=== PATIENT | female | born 1980 | race Caucasian/White ===

== ENCOUNTER 2016-05-22 14:17 | Emergency (ER) | payer OTHER ==
--- NOTE | 2016-05-22 14:20 | EDM.PDOC ---
ED HPI HEADACHE COMPLAINT - General Chief Complaint: Headache Stated Complaint: MIGRAINE/THROWING UP Time Seen by Provider: 05/22/16 14:20 Source of Information: Reports: Patient, RN, RN notes reviewed History Limitations: Reports: No limitations - History of Present Illness INITIAL COMMENTS - FREE TEXT/NARRATIVE: Patient presents with migraine x2 days with photophobia, nauea, vomiting and sore throat. Fever sensation, but did not measure temperature. Out of Relpex. History of migraine. Symptom Onset Date: 05/20/16 Timing/Duration: Reports: constant/continuous Location: Reports: generalized Severity: Reports: severe - Related Data Allergies/ADRs: Allergies Allergy/AdvReac Type Severity Reaction Status Date / Time No Known Allergies Allergy Verified 05/22/16 15:09 Past Medical History Neurological History: Reports: Migraines Social & Family History - Family History Family Medical History: Noncontributory ED ROS GENERAL - Review of Systems Review Of Systems: ROS reveals no pertinent complaints other than HPI. - Physical Exam Exam: See Below Exam Limited By: No limitations General Appearance: alert, WD/WN, no apparent distress Eye Exam: bilateral eye: other (positive photophobia.) Ears: normal external exam Nose: normal inspection Throat/Mouth: Other (pharyngeal eruthema without exudate. ) Head Exam: atraumatic, normocephalic Neck: normal inspection, supple, non-tender, full range of motion Respiratory/Chest: no respiratory distress, lungs clear, normal breath sounds, no accessory muscle use, chest non-tender Cardiovascular: regular rate, rhythm, tachycardia GI/Abdominal: normal bowel sounds, soft, non tender, no organomegaly, no distention, no abnormal bruit, no mass Neuro Exam (Abbreviated): alert, oriented, CN II-XII intact, normal cognition, normal gait, normal reflexes, no motor/sensory deficits Back Exam: normal inspection, full range of motion, NT Extremities: normal inspection, normal range of motion, non-tender, no pedal edema, normal capillary refill Psychiatric: normal affect, normal mood Skin Exam: Warm, Dry, Intact, Normal color, No rash Course - Orders/Labs/Meds Orders: Active Orders 24 hr Category Date Time Status Peripheral IV Care [RC] . DIRECTED Care 05/22/16 14:58 Active Sodium Chloride 0.9% [Saline Flush] Med 05/22/16 14:57 Active 10 ml FLUSH ASDIRECTED PRN cefTRIAXone [Rocephin] 1 gm Med 05/22/16 16:16 Active Sodium Chloride 0.9% [Normal Saline] 50 ml IV ONETIME Peripheral IV Insertion Adult [OM.PC] Stat Oth 05/22/16 14:57 Ordered Medication Orders Ceftriaxone Sodium 1 gm/ (Sodium Chloride) 50 mls @ 100 mls/hr IV ONETIME ONE Stop: 05/22/16 16:45 Last Admin: 05/22/16 16:30 Dose: 100 mls/hr Sodium Chloride (Saline Flush) 10 ml FLUSH ASDIRECTED PRN PRN Reason: Keep Vein Open Last Admin: 05/22/16 15:46 Dose: 10 ml Meds: Medications Generic Name Dose Route Start Last Admin Trade Name Freq PRN Reason Stop Dose Admin Ceftriaxone Sodium 1 gm/ 50 mls @ 100 mls/hr 05/22/16 16:16 05/22/16 16:30 Sodium Chloride IV 05/22/16 16:45 100 mls/hr ONETIME ONE Administration Sodium Chloride 10 ml 05/22/16 14:57 05/22/16 15:46 Saline Flush FLUSH 10 ml ASDIRECTED PRN Administration Keep Vein Open Discontinued Medications Generic Name Dose Route Start Last Admin Trade Name Freq PRN Reason Stop Dose Admin Diphenhydramine HCl 25 mg 05/22/16 15:35 05/22/16 15:45 Benadryl IVPUSH 05/22/16 15:36 25 mg ONETIME ONE Administration Sodium Chloride 1,000 mls @ 999 mls/hr 05/22/16 14:57 05/22/16 15:45 Normal Saline IV 05/22/16 15:57 999 mls/hr .BOLUS ONE Administration Ketorolac Tromethamine 30 mg 05/22/16 15:35 05/22/16 15:44 Toradol IVPUSH 05/22/16 15:36 30 mg ONETIME ONE Administration Metoclopramide HCl 10 mg 05/22/16 15:36 05/22/16 15:46 Reglan IVPUSH 05/22/16 15:37 10 mg ONETIME ONE Administration - Re-Assessments/Exams Free Text/Narrative Re-Assessment/Exam: 05/22/16 16:34 Rapid strep: Positive. Departure - Departure Time of Disposition: 16:34 Disposition: Home, Self-Care 01 Condition: good Clinical Impression: Strep pharyngitis Migraine Qualifiers: Migraine type: unspecified Status migrainosus presence: with status migrainosus Intractability: not intractable Qualified Code(s): G43.901 - Migraine, unspecified, not intractable, with status migrainosus Instructions: Migraine Headache, [id number], Strep Throat, [id number] Forms: ED Department Discharge Additional Instructions: Relpex 20mg. Amoxicillin 500mg. Follow up in clinic if not improved in 2 days. - My Orders Last 24 Hours: My Active Orders 05/22/16 14:57 Sodium Chloride 0.9% [Saline Flush] 10 ml FLUSH ASDIRECTED PRN Peripheral IV Insertion Adult [OM.PC] Stat 05/22/16 14:58 Peripheral IV Care [RC] . DIRECTED 05/22/16 16:16 cefTRIAXone [Rocephin] 1 gm Sodium Chloride 0.9% [Normal Saline] 50 ml IV ONETIME - Assessment/Plan Last 24 Hours: My Active Orders 05/22/16 14:57 Sodium Chloride 0.9% [Saline Flush] 10 ml FLUSH ASDIRECTED PRN Peripheral IV Insertion Adult [OM.PC] Stat 05/22/16 14:58 Peripheral IV Care [RC] . DIRECTED 05/22/16 16:16 cefTRIAXone [Rocephin] 1 gm Sodium Chloride 0.9% [Normal Saline] 50 ml IV ONETIME
[2016-05-22] MEDS ORDERED: Sodium Chloride 0.9% 10 ML Syringe FLUSH PRN (14:57)
[2016-05-22] MEDS ORDERED: Sodium Chloride 0.9% 1,000 ML IV ONE (14:57)
[2016-05-22] MEDS ORDERED: diphenhydrAMINE 50 MG/ML SDV IVPUSH ONE (15:35)
[2016-05-22] MEDS ORDERED: Ketorolac 30 MG/ML SDV IVPUSH ONE (15:35)
[2016-05-22] MEDS ORDERED: Metoclopramide 10 MG/2 ML SDV IVPUSH ONE (15:36)
[2016-05-22] MEDS ORDERED: cefTRIAXone 1 GM in Sodium Chloride 0.9% 50 ML IV ONE (16:16)
[2016-05-22 16:42] VITALS: BP 144/67
== END 2016-05-22 17:50 | disposition home or self-care (01) ==
LOC: DL.ED 14:17
DX: G43.901 Migraine, unspecified, not intractable, with status migrainosus (principal); J02.0 Streptococcal pharyngitis
CPT/HCPCS: 87430; 96361; 96365; 96375; 99284; J0696; J1200; J1885; J2765; J7030; J7050

== ENCOUNTER 2017-03-15 06:53 | Day surgery (SDC) | payer OTHER ==
[~2017-03-15 06:53] MED LIST: Midazolam 1 MG/ML 2 ML SDV ONE; fentaNYL 100 MCG/2 ML SDV ONE
[2017-03-15] MEDS ORDERED: Midazolam 1 MG/ML 2 ML SDV IV ONE ×3 (06:54→08:08)
[2017-03-15] MEDS ORDERED: fentaNYL 100 MCG/2 ML SDV IV ONE ×3 (06:54→08:07)
[2017-03-15] MEDS ORDERED: Dextrose 5%-0.45% NaCl 1,000 ML IV SCH (07:30)
--- NOTE | 2017-03-15 12:02 | OR ---
DATE: 03/15/2017 PROCEDURE: Esophagogastroduodenoscopy and multiple pinch biopsies. INSTRUMENT USED: GIF-H180 Olympus video panendoscope. PREMEDICATIONS: No oral topical anesthesia used. Fentanyl 100 mcg intravenous, Versed 2 mg intravenous. The procedure was done under pulse oximetry, BP recording, and front desk monitor. INDICATION: The patient with persistent longstanding heartburn along with intermittent upper abdominal pain, unexplained and not responsive to medical measures, on H2RA at this time. Esophagogastroduodenoscopy was performed for detection of any active erosive lesions, [place] esophagus and/or malignancy also under consideration, H. pylori status to be determined, endoscopic hemostasis therapy if needed. DESCRIPTION OF PROCEDURE: The scope passed with ease. Adequate visualization of the esophagus was made from proximal to distal areas. No upper esophageal lesions identified. No distal esophageal stricture. No uphill or downhill esophageal varices. No Shae-Zhang tear. Grade A erosive changes were noted by [place] criteria. No esophageal polyp or tumor mass identified. Sliding hiatal hernia was noted. Multiple pinch biopsies were taken from the area of the pink columnar epithelium, 35 cm distal to the oral verge, and sent for any histopathologic evidence of intestinal metaplasia. No proximal gastric varices noted. Gastric fundus examination by retroflexion showed no polypoid lesions. No gastric ulcer, malignant mass, or vascular ectasia identified. Duodenal bulb showed no ulcer. Visualized second part of the duodenum was unremarkable. Multiple pinch biopsies were taken from the gastric antrum and proximal body and sent for PyloriTek test for H. pylori and histopathology. No bleeding was noted from any of the visualized areas at the completion of examination. Photographs were taken of the duodenal bulb, gastric antrum, fundus, and distal esophagus. IMPRESSION: 1. Grade A gastroesophageal reflux disease. 2. Sliding hiatal hernia. The patient tolerated the procedure well. [facility] /[id number]
[2017-03-15 15:11] VITALS: BP 125/77
== END 2017-03-15 10:20 | disposition home or self-care (01) ==
LOC: DL.ENDO 06:53
PROVIDERS: ATTEND Internal Medicine Gastroenterology
DX: K20.9 Esophagitis, unspecified (principal); K44.9 Diaphragmatic hernia without obstruction or gangrene; E66.9 Obesity, unspecified; F41.1 Generalized anxiety disorder; Z88.8 Allergy status to other drugs, medicaments and biological substances; Z91.040 Latex allergy status; Z87.19 Personal history of other diseases of the digestive system
CPT/HCPCS: 43239; 87077; J2250; J3010; J7042

== ENCOUNTER 2018-07-23 07:37 | Emergency (ER) | payer OTHER ==
[2018-07-23 07:43] VITALS: BP 148/89
[2018-07-23] MEDS ORDERED: Sodium Chloride 0.9% 10 ML Syringe FLUSH PRN (07:45)
--- NOTE | 2018-07-23 07:46 | EDM.PDOC ---
ED HPI GENERAL MEDICAL PROBLEM - General Chief Complaint: Abdominal Pain Stated Complaint: SEVERE ABD PAIN Time Seen by Provider: 07/23/18 07:45 Source of Information: Reports: Patient, Old Records, RN, RN Notes Reviewed History Limitations: Reports: No Limitations - History of Present Illness INITIAL COMMENTS - FREE TEXT/NARRATIVE: Pt presents to ER from home by POV with c/o severe sharp epigastric pain that woke her at 0100HRS this morning. Pt states that her abdomen feels "full and heavy". She took Tums and Omeprazole without relief. Pt states her last BM was this AM, and BMs have been soft and regular. She states that her gallbladder was removed in 2017, and she has had a tubal ligation. Pt denies fever, chills, vomiting, diarrhea, constipation, or urinary symptoms. Duration: Constant, Getting Worse Location: Reports: Abdomen Quality: Reports: Sharp Severity: Severe Improves with: Reports: None Worsens with: Reports: None Associated Symptoms: Reports: No Other Symptoms Epigastric Pain Score (Numeric/FACES): 7 - Related Data Allergies Allergy/AdvReac Type Severity Reaction Status Date / Time citalopram [From Celexa] Allergy Rash Verified 07/23/18 07:43 latex Allergy Rash Verified 07/23/18 07:43 Home Meds: Home Meds DULoxetine HCl [Duloxetine HCl] 60 mg PO DAILY 07/23/18 [History] Omeprazole 20 mg PO ACBREAKFAST 07/23/18 [History] Past Medical History HEENT History: Reports: Impaired Vision, Other (See Below) Other HEENT History: WEARS CORRECTIVE LENS Cardiovascular History: Reports: None Respiratory History: Reports: None Gastrointestinal History: Reports: GERD Genitourinary History: LACE MENDER History: Reports: , Spontaneous Musculoskeletal History: Reports: Back Pain, Chronic Other Musculoskeletal History: HX OF CLAVICLE FRACTURE Neurological History: Reports: Migraines Psychiatric History: Reports: Anxiety Endocrine/Metabolic History: Reports: Obesity/BMI 30+ Hematologic History: Reports: None Immunologic History: Reports: None Oncologic (Cancer) History: Reports: None Dermatologic History: Reports: None - Infectious Disease History Infectious Disease History: Reports: Chicken Pox - Past Surgical History Female Surgical History: Reports: Section, D&C, Tubal Ligation, Other (See Below) Other Female Surgeries/Procedures: URETHRAL DILATION Social & Family History - Family History Family Medical History: Noncontributory - Caffeine Use Caffeine Use: Reports: Coffee Other Caffeine Use: 'RARELY' 1 CUP COFFEE DAILY - Living Situation & Occupation Living situation: Reports: with Family ED ROS GENERAL - Review of Systems Review Of Systems: ROS reveals no pertinent complaints other than HPI. ED EXAM, GI/ABD - Physical Exam Exam: See Below Exam Limited By: No Limitations General Appearance: Alert, WD/WN, No Apparent Distress, Mild Distress (due to pain), Obese Eyes: Bilateral: Normal Appearance Nose: Normal Inspection Throat/Mouth: Normal Inspection, Normal Lips, Normal Teeth, Normal Gums, Normal Oropharynx, Normal Voice, No Airway Compromise Head: Atraumatic, Normocephalic Neck: Normal Inspection, Supple, Non-Tender, Full Range of Motion Respiratory/Chest: No Respiratory Distress, Lungs Clear, Normal Breath Sounds, No Accessory Muscle Use, Chest Non-Tender Cardiovascular: Regular Rate, Rhythm GI/Abdominal Exam: Normal Bowel Sounds, Soft, No Organomegaly, No Distention, No Abnormal Bruit, No Mass, Tender (mildly tender to palpation at epigastric region). No: Guarding, Rigid, Rebound (Female) Exam: Deferred Rectal (Female) Exam: Deferred Back Exam: Normal Inspection Extremities: Normal Inspection Neurological: Alert, Oriented, No Motor/Sensory Deficits Psychiatric: Normal Mood Skin Exam: Warm, Dry, Intact, Normal Color, No Rash Course - Vital Signs Last Recorded V/S: Last Vital Signs Temp 36.3 C 07/23/18 07:40 Pulse 77 07/23/18 07:40 Resp 20 07/23/18 07:40 BP 148/89 H 07/23/18 07:40 Pulse Ox 99 07/23/18 07:40 - Orders/Labs/Meds Orders: Active Orders 24 hr Category Date Time Status Peripheral IV Care [RC] . DIRECTED Care 07/23/18 07:46 Active Sodium Chloride 0.9% [Saline Flush] Med 07/23/18 07:45 Active 10 ml FLUSH ASDIRECTED PRN Peripheral IV Insertion Adult [OM.PC] Routine Oth 07/23/18 07:45 Ordered Medication Orders Sodium Chloride (Saline Flush) 10 ml FLUSH ASDIRECTED PRN PRN Reason: Keep Vein Open Last Admin: 07/23/18 08:13 Dose: 10 ml Labs: Laboratory Tests 07/23/18 07/23/18 07/23/18 Range/Units 07:45 07:45 07:45 WBC 10.3 H (5.0-10.0) 10^3/uL RBC 4.96 (4.2-5.4) 10^6/uL Hgb 14.3 (12.0-16.0) g/dL Hct 42.1 (37.0-47.0) % MCV 84.9 (80-100) fL MCH 28.8 (27.0-34.0) pg MCHC 34.0 (33.0-35.0) g/dL Plt Count 272 (150-450) 10^3/uL Neut % (Auto) 70.7 (42.2-75.2) % Lymph % (Auto) 20.2 L (20.5-50.1) % Evangeline % (Auto) 9.0 H (2-8) % Eos % (Auto) 0.0 L (1.0-3.0) % Baso % (Auto) 0.1 (0.0-1.0) % Sodium 132 L (135-145) mmol/L Potassium 3.5 L (3.6-5.0) mmol/L Chloride 107 (101-111) mmol/L Carbon Dioxide 18.0 L (21.0-31.0) mmol/L Anion Gap 10.5 BUN 12 (7-18) mg/dL Creatinine 0.6 (0.6-1.3) mg/dL Est Cr Clr Drug Dosing 115.52 mL/min Estimated GFR (MDRD) > 60 BUN/Creatinine Ratio 20.00 Glucose 107 H (74-105) mg/dL Calcium 8.6 (8.4-10.2) mg/dl Total Bilirubin 0.5 (0.2-1.0) mg/dL AST 23 (10-42) IU/L ALT 21 (10-60) IU/L Alkaline Phosphatase 66 (42-121) IU/L Total Protein 8.1 (6.7-8.2) g/dl Albumin 4.3 (3.2-5.5) g/dl Globulin 3.8 Albumin/Globulin Ratio 1.13 Amylase 44 (28-100) U/L Lipase 33 (22-51) U/L Meds: Medications Generic Name Dose Route Start Last Admin Trade Name Jolly PRN Reason Stop Dose Admin Sodium Chloride 10 ml 07/23/18 07:45 07/23/18 08:13 Saline Flush FLUSH 10 ml ASDIRECTED PRN Administration Keep Vein Open Discontinued Medications Generic Name Dose Route Start Last Admin Trade Name Jolly PRN Reason Stop Dose Admin Al Hydroxide/Mg Hydroxide 30 ml 07/23/18 07:51 07/23/18 08:04 Gi Cocktail PO 07/23/18 07:52 30 ml ONETIME ONE Administration Famotidine 20 mg 07/23/18 07:51 07/23/18 08:01 Pepcid IVPUSH 07/23/18 07:52 20 mg ONETIME ONE Administration Hydromorphone HCl 1 mg 07/23/18 08:12 07/23/18 08:16 Dilaudid IVPUSH 07/23/18 08:13 1 mg ONETIME ONE Administration Sodium Chloride 1,000 mls @ 999 mls/hr 07/23/18 07:52 07/23/18 07:59 Normal Saline IV 07/23/18 08:52 999 mls/hr .BOLUS ONE Administration Iopamidol 100 ml 07/23/18 08:43 07/23/18 09:27 Isovue-300 (61%) IVPUSH 07/23/18 08:44 100 ml ONETIME ONE Administration Ondansetron HCl 4 mg 07/23/18 07:52 07/23/18 07:59 Zofran IV 07/23/18 07:53 4 mg ONETIME ONE Administration - Radiology Interpretation Free Text/Narrative:: CT Abd/Pelvis: no acute findings, see Rad. report. - Re-Assessments/Exams Free Text/Narrative Re-Assessment/Exam: 07/23/18 10:25 No signs of serious intra-abdominal process, infection, or surgical abdomen. Known hiatal hernia with Hx of epigastric pain previous. Plan to have pt f/u in clinic for recheck and further evaluation. Cont. omeprazole and add short term Ranitidine. Departure - Departure Time of Disposition: 10:21 Disposition: Home, Self-Care 01 Condition: Fair Clinical Impression: Epigastric abdominal pain, Sliding hiatal hernia - Discharge Information *PRESCRIPTION DRUG MONITORING PROGRAM REVIEWED*: Not Applicable *COPY OF PRESCRIPTION DRUG MONITORING REPORT IN PATIENT RACHAEL: Not Applicable Instructions: Abdominal Pain, Adult, Hiatal Hernia Forms: ED Department Discharge Additional Instructions: Rx: Ranitidine 150mg Rx: Zofran 4mg Continue Omeprazole as prescribed. Clear liquid diet for 24 hours, or until pain resolves. No soda, no citric or acidic juice. Follow up in clinic this week for recheck. - My Orders Last 24 Hours: My Active Orders 07/23/18 07:45 Sodium Chloride 0.9% [Saline Flush] 10 ml FLUSH ASDIRECTED PRN Peripheral IV Insertion Adult [OM.PC] Routine 07/23/18 07:46 Peripheral IV Care [RC] . DIRECTED - Assessment/Plan Last 24 Hours: My Active Orders 07/23/18 07:45 Sodium Chloride 0.9% [Saline Flush] 10 ml FLUSH ASDIRECTED PRN Peripheral IV Insertion Adult [OM.PC] Routine 07/23/18 07:46 Peripheral IV Care [RC] . DIRECTED
[2018-07-23] MEDS ORDERED: GI Cocktail Oral Solution 30 ML PO ONE (07:51)
[2018-07-23] MEDS ORDERED: Famotidine 20 MG/2 ML SDV IVPUSH ONE (07:51)
[2018-07-23] MEDS ORDERED: Ondansetron 4 MG/2 ML SDV IV ONE (07:52)
[2018-07-23] MEDS ORDERED: Sodium Chloride 0.9% 1,000 ML IV ONE (07:52)
[2018-07-23] MEDS ORDERED: HYDROmorphone 1 MG/ML Syringe IVPUSH ONE (08:12)
[2018-07-23 08:14] LABS: ANION GAP 10.5; CHLORIDE,CL 107 mmol/L (101-111); SODIUM,NA 132 mmol/L (135-145)
[2018-07-23] MEDS ORDERED: Iopamidol 612 MG/ML 100 ML Bottle IVPUSH ONE (08:43)
--- NOTE | 2018-07-23 10:16 | CT ---
Clinical history: 37-year-old 185 pound female complaining of severe upper abdominal pain. WBC 10,300 (cholecystectomy) Normal serum amylase/lipase. Scan technique: Volume acquisition of data from the abdomen and pelvis obtained on emergency basis without oral contrast but during/after intravenous infusion 100 cc nonionic Isovue contrast while patient was lying supine on the Siemens multi slice scanner [place], [place]. All data archived in the PACS system for storage, reformatting axial/sagittal/coronal planes and study. Interpretation: 1. Several 15 mm diameter cyst lower pole cortex left kidney with overlying cortical scar. No other renal cortical mass lesion, stones or signs of obstructive uropathy. Urinary bladder unremarkable. Normal vascular uterus and small ovarian cysts. 2. Surgical clips gallbladder fossa RUQ. Normal liver without sign of intrahepatic mass or abnormal dilatation of intra/extrahepatic biliary ducts. Normal stomach, spleen, pancreas and adrenal glands. 3. Lung bases are clear. Normal caliber aorta. Normal cardiac silhouette. 4. No inflammatory "dirty" peritoneal fat, abdominal/pelvic mass lesion, mesenteric/retroperitoneal lymphadenopathy, signs of mechanical bowel obstruction, ascites or free intraperitoneal air. No ventral wall or inguinal hernias. Normal appendix RLQ. 5. Normal lumbar spine. CONCLUSION: Cholecystectomy. Solitary left renal cyst. No sign of acute intraperitoneal abnormality.
== END 2018-07-23 10:30 | disposition home or self-care (01) ==
LOC: DL.ED 07:37
DX: K44.9 Diaphragmatic hernia without obstruction or gangrene (principal); K21.9 Gastro-esophageal reflux disease without esophagitis; E66.9 Obesity, unspecified; Z79.899 Other long term (current) drug therapy; Z98.51 Tubal ligation status; Z91.040 Latex allergy status; Z88.8 Allergy status to other drugs, medicaments and biological substances
CPT/HCPCS: 36415; 74177; 80053; 82150; 83690; 85025; 96361; 96374; 96375; 99284-25; A9270-GY; J1170; J2405; J3490; J7030; Q9967

== ENCOUNTER 2018-07-24 12:36 | Emergency (ER) | payer OTHER ==
[2018-07-24 12:41] VITALS: BP 128/94
[2018-07-24] MEDS ORDERED: Sodium Chloride 0.9% 1,000 ML IV ONE (12:48)
[2018-07-24] MEDS ORDERED: Ondansetron 4 MG/2 ML SDV IV ONE (12:48)
[2018-07-24] MEDS ORDERED: Morphine 4 MG/ML Syringe IVPUSH ONE (12:48)
[2018-07-24] MEDS ORDERED: Sodium Chloride 0.9% 10 ML Syringe FLUSH PRN (12:48)
[2018-07-24] MEDS ORDERED: diphenhydrAMINE 50 MG/ML SDV IVPUSH ONE (12:48)
--- NOTE | 2018-07-24 12:48 | EDM.PDOC ---
ED HPI GENERAL MEDICAL PROBLEM - General Chief Complaint: Abdominal Pain Stated Complaint: ambulance Time Seen by Provider: 07/24/18 12:47 Source of Information: Reports: Patient, EMS, Old Records, RN, RN Notes Reviewed History Limitations: Reports: No Limitations - History of Present Illness INITIAL COMMENTS - FREE TEXT/NARRATIVE: Pt arrives to ER by ambulance with c/o persistent severe abdominal pain. She was seen here yesterday and despite the severe pain, no definitive cause of her pain was found. She went to [facility] ER in last night for the same complaint, and again no source of her pain could be found. She went to see Dr. Zamora in clinic today and states that he order more blood tests, but they were normal. She states that Dr. Zamora also ordered an MRCP and Swallow Study but they cannot be scheduled until next week. The pt states the pain increased and she ended up "doubled over" and could not tolerate the pain, so she called 911. She denies vomiting, fever, chills, bloody stools or melana. Onset: Gradual Duration: Constant Location: Reports: Abdomen Quality: Reports: Ache, Burning, Pressure, Sharp Severity: Severe Improves with: Reports: None Worsens with: Reports: None Associated Symptoms: Reports: No Other Symptoms Epigastric Pain Score (Numeric/FACES): 8 Headache Pain Score (Numeric/FACES): 8 - Related Data Allergies Allergy/AdvReac Type Severity Reaction Status Date / Time citalopram [From Celexa] Allergy Rash Verified 07/24/18 12:41 latex Allergy Rash Verified 07/24/18 12:41 Home Meds: Home Meds DULoxetine HCl [Duloxetine HCl] 60 mg PO DAILY 07/23/18 [History] Omeprazole 20 mg PO ACBREAKFAST 07/23/18 [History] Past Medical History HEENT History: Reports: Impaired Vision, Other (See Below) Other HEENT History: WEARS CORRECTIVE LENS Cardiovascular History: Reports: None Respiratory History: Reports: None Gastrointestinal History: Reports: GERD, Hiatal Hernia Genitourinary History: 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 AND WINDER History: Reports: , Spontaneous Musculoskeletal History: Reports: Back Pain, Chronic Other Musculoskeletal History: HX OF CLAVICLE FRACTURE Neurological History: Reports: Migraines Psychiatric History: Reports: Anxiety Endocrine/Metabolic History: Reports: Obesity/BMI 30+ Hematologic History: Reports: None Immunologic History: Reports: None Oncologic (Cancer) History: Reports: None Dermatologic History: Reports: None - Infectious Disease History Infectious Disease History: Reports: Chicken Pox - Past Surgical History Head Surgeries/Procedures: Reports: None Female Surgical History: Reports: Section, D&C, Tubal Ligation, Other (See Below) Other Female Surgeries/Procedures: URETHRAL DILATION Social & Family History - Family History Family Medical History: Noncontributory - Tobacco Use Smoking Status *Q: Never Smoker Second Hand Smoke Exposure: No - Caffeine Use Caffeine Use: Reports: Coffee Other Caffeine Use: 'RARELY' 1 CUP COFFEE DAILY - Recreational Drug Use Recreational Drug Use: No - Living Situation & Occupation Living situation: Reports: with Family ED ROS GENERAL - Review of Systems Review Of Systems: ROS reveals no pertinent complaints other than HPI. ED EXAM, GI/ABD - Physical Exam Exam: See Below Exam Limited By: No Limitations General Appearance: Alert, Severe Distress (due to abdominal pain), Obese Eyes: Bilateral: Normal Appearance (No scleral icterus) Nose: Normal Inspection Throat/Mouth: Normal Inspection, Normal Lips, Normal Teeth, Normal Gums, Normal Oropharynx, Normal Voice, No Airway Compromise Head: Atraumatic, Normocephalic Neck: Normal Inspection Respiratory/Chest: No Respiratory Distress, Lungs Clear, Normal Breath Sounds, No Accessory Muscle Use, Chest Non-Tender Cardiovascular: Regular Rate, Rhythm, No Edema GI/Abdominal Exam: Normal Bowel Sounds, Soft, No Distention, No Abnormal Bruit, Tender (mild epigastric tenderness, no peritoneal signs). No: Guarding, Rigid, Rebound (Female) Exam: Deferred Rectal (Female) Exam: Deferred Back Exam: Normal Inspection Extremities: Normal Inspection Neurological: Alert, Oriented, No Motor/Sensory Deficits Psychiatric: Normal Mood Skin Exam: Warm, Dry, Intact Course - Vital Signs Last Recorded V/S: Last Vital Signs Temp 36.6 C 07/24/18 12:36 Pulse 74 07/24/18 12:36 Resp 20 07/24/18 12:36 BP 128/94 H 07/24/18 12:36 Pulse Ox 98 07/24/18 12:36 - Orders/Labs/Meds Orders: Active Orders 24 hr Category Date Time Status Peripheral IV Care [RC] . DIRECTED Care 07/24/18 12:48 Active Sodium Chloride 0.9% [Normal Saline] 1,000 ml Med 07/24/18 12:48 Active IV .BOLUS Sodium Chloride 0.9% [Saline Flush] Med 07/24/18 12:48 Active 10 ml FLUSH ASDIRECTED PRN Peripheral IV Insertion Adult [OM.PC] Stat Oth 07/24/18 12:48 Ordered Medication Orders Sodium Chloride (Normal Saline) 1,000 mls @ 999 mls/hr IV .BOLUS ONE Stop: 07/24/18 13:48 Sodium Chloride (Saline Flush) 10 ml FLUSH ASDIRECTED PRN PRN Reason: Keep Vein Open Meds: Medications Generic Name Dose Route Start Last Admin Trade Name Freq PRN Reason Stop Dose Admin Sodium Chloride 1,000 mls @ 999 mls/hr 07/24/18 12:48 Normal Saline IV 07/24/18 13:48 .BOLUS ONE Sodium Chloride 10 ml 07/24/18 12:48 Saline Flush FLUSH ASDIRECTED PRN Keep Vein Open Discontinued Medications Generic Name Dose Route Start Last Admin Trade Name Freq PRN Reason Stop Dose Admin Diphenhydramine HCl 25 mg 07/24/18 12:48 Benadryl IVPUSH 07/24/18 12:49 ONETIME ONE Morphine Sulfate 4 mg 07/24/18 12:48 Morphine IVPUSH 07/24/18 12:49 ONETIME ONE Ondansetron HCl 4 mg 07/24/18 12:48 Zofran IV 07/24/18 12:49 ONETIME ONE Pantoprazole Sodium 40 mg 07/24/18 12:49 Protonix Iv IVPUSH 07/24/18 12:50 ONETIME ONE - Re-Assessments/Exams Free Text/Narrative Re-Assessment/Exam: 07/24/18 13:07 Given the 2 previous ER work ups and one clinic visit without any significant abnormalities and no definitive source of her pain, I see no need to embark on a third diagnostic evaluation at this point. I believe the pt will be best severed by providing pain control, IV Protonix, and transferring her as a direct admit to [facility] in to a higher level of care. The pt agrees with the plan to transfer. Dr. Raygoza has accepted the pt as a direct admit. Departure - Departure Time of Disposition: 13:11 Disposition: DC/Tfer to Acute Hospital 02 Condition: Undetermined Clinical Impression: Epigastric abdominal pain, History of hiatal hernia, History of gastroesophageal reflux (GERD) - Discharge Information *PRESCRIPTION DRUG MONITORING PROGRAM REVIEWED*: Not Applicable *COPY OF PRESCRIPTION DRUG MONITORING REPORT IN PATIENT RACHAEL: Not Applicable Forms: ED Department Discharge - My Orders Last 24 Hours: My Active Orders 07/24/18 12:48 Peripheral IV Care [RC] . DIRECTED Sodium Chloride 0.9% [Normal Saline] 1,000 ml IV .BOLUS Sodium Chloride 0.9% [Saline Flush] 10 ml FLUSH ASDIRECTED PRN Peripheral IV Insertion Adult [OM.PC] Stat - Assessment/Plan Last 24 Hours: My Active Orders 07/24/18 12:48 Peripheral IV Care [RC] . DIRECTED Sodium Chloride 0.9% [Normal Saline] 1,000 ml IV .BOLUS Sodium Chloride 0.9% [Saline Flush] 10 ml FLUSH ASDIRECTED PRN Peripheral IV Insertion Adult [OM.PC] Stat
[2018-07-24] MEDS ORDERED: Pantoprazole 40 MG Vial IVPUSH ONE (12:49)
== END 2018-07-24 13:30 ==
LOC: DL.ED 12:36
DX: R10.13 Epigastric pain (principal); Z87.19 Personal history of other diseases of the digestive system; F41.9 Anxiety disorder, unspecified; Z79.899 Other long term (current) drug therapy; Z91.040 Latex allergy status; Z88.8 Allergy status to other drugs, medicaments and biological substances
CPT/HCPCS: 96374; 96375; 99285; C9113; J1200; J2270; J2405; J7030

== ENCOUNTER → 2018-08-01 | Outpatient (CLI) | payer OTHER ==
[~2018-08-01] MED LIST changes: +Barium Sulfate 60% w/v Susp 355 ML Bottle PO ONE; -Midazolam 1 MG/ML 2 ML SDV ONE; -fentaNYL 100 MCG/2 ML SDV ONE
--- NOTE | 2018-08-01 15:16 | CR ---
CLINICAL HISTORY: 37-year-old female complaining of dysphagia (bread and chicken "sticks" lower chest). INTERPRETATION: Abnormal. 1. Normal barium tablet swallow initiated; tablet dropped immediately to the distal esophagus where there was some "hang-up" (passes immediately with second large bolus of barium). Prominent cricopharyngeus. 2. Large, sliding, hiatus hernia with gross free gastroesophageal reflux barium that was produced/demonstrated with Valsalva maneuver while patient was rolling supine, to the left. 3. *Short, broad stricture distally; suggestion tiny marginal ulceration at the gastroesophageal juncture. Recommend endoscopy. 4. No mucosal ulcerations proximally and no sign of esophageal diverticulum, web, other mucosal ulceration, proximal stricture, intrinsic/extrinsic mass or spasm. No barium aspiration. 5. Stomach unremarkable. (Surgical clip gallbladder fossa adjacent to the duodenum).
== END ==
LOC: DL.DI 10:11
PROVIDERS: ATTEND Internal Medicine Gastroenterology
DX: R13.10 Dysphagia, unspecified (principal)
CPT/HCPCS: 74220

== ENCOUNTER 2019-08-27 10:05 | Emergency (ER) | payer OTHER ==
[2019-08-27 10:12] VITALS: BP 136/88; PULSE 83
--- NOTE | 2019-08-27 10:19 | EDM.PDOC ---
ED HPI GENERAL MEDICAL PROBLEM - General Chief Complaint: Lower Extremity Injury/Pain Stated Complaint: INCOMING AMBULANCE Time Seen by Provider: 08/27/19 10:18 Source of Information: Reports: Patient, EMS, Old Records, RN, RN Notes Reviewed History Limitations: Reports: No Limitations - History of Present Illness INITIAL COMMENTS - FREE TEXT/NARRATIVE: Pt arrives from home by [facility] with c/o severe right knee pain and right ankle pain sustained from falling down 15 steps and landing at the bottom of the stairs in her basement. She denies head injury, neck or back pain, or any other injury. Pt denies chest pain, cough, shortness of breath, eye irritation/drainage, loss of taste or smell, red tongue, rash or skin lesions, abdominal pain, N/V/D, fevers, chills, recent travel, or known exposure to confirmed or suspected Covid -19 cases. 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: Reports: IV/IO, Other Medication(s) (Fentanyl 100mcg and Zofran 4mg IVP from ambulance prior to arrival to ER.) Right Knee Pain Score (Numeric/FACES): 6 - Related Data Allergies Allergy/AdvReac Type Severity Reaction Status Date / Time citalopram [From Celexa] Allergy Rash Verified 08/27/19 10:12 latex Allergy Rash Verified 08/27/19 10:12 Home Meds: Home Meds DULoxetine HCl [Duloxetine HCl] 60 mg PO DAILY 07/23/18 [History] Omeprazole 20 mg PO ACBREAKFAST 07/23/18 [History] Past Medical History HEENT History: Reports: Impaired Vision, Other (See Below) Other HEENT History: WEARS CORRECTIVE LENS Cardiovascular History: Reports: None Respiratory History: Reports: None Gastrointestinal History: Reports: GERD, Hiatal Hernia Genitourinary History: COMPLEX CASE MANAGER History: Reports: , Spontaneous Musculoskeletal History: Reports: Back Pain, Chronic Other Musculoskeletal History: HX OF CLAVICLE FRACTURE Neurological History: Reports: Migraines Psychiatric History: Reports: Anxiety Endocrine/Metabolic History: Reports: Obesity/BMI 30+ Hematologic History: Reports: None Immunologic History: Reports: None Oncologic (Cancer) History: Reports: None Dermatologic History: Reports: None - Infectious Disease History Infectious Disease History: Reports: Chicken Pox - Past Surgical History Head Surgeries/Procedures: Reports: None Female Surgical History: Reports: Section, D&C, Tubal Ligation, Other (See Below) Other Female Surgeries/Procedures: URETHRAL DILATION Social & Family History - Family History Family Medical History: Noncontributory - Tobacco Use Smoking Status *Q: Never Smoker Second Hand Smoke Exposure: No - Caffeine Use Caffeine Use: Reports: Coffee Other Caffeine Use: 'RARELY' 1 CUP COFFEE DAILY - Recreational Drug Use Recreational Drug Use: No - Living Situation & Occupation Living situation: Reports: with Family Review of Systems - Review of Systems Review Of Systems: Comprehensive ROS is negative, except as noted in HPI. ED EXAM, GENERAL - Physical Exam Exam: See Below Exam Limited By: No Limitations General Appearance: Alert, WD/WN, No Apparent Distress Eye Exam: Bilateral Eye: Normal Inspection Ears: Normal External Exam Nose: Normal Inspection, Normal Mucosa, No Blood Throat/Mouth: Normal Lips, Normal Voice, No Airway Compromise Head: Atraumatic, Normocephalic Neck: Normal Inspection, Non-Tender, Full Range of Motion Respiratory/Chest: No Respiratory Distress, Lungs Clear, Normal Breath Sounds, No Accessory Muscle Use, Chest Non-Tender Cardiovascular: Regular Rate, Rhythm Peripheral Pulses: 3+: Posterior Tibial (L), Posterior Tibial (R), Dorsalis Pedis (L), Dorsalis Pedis (R) GI/Abdominal: Normal Bowel Sounds, Soft, Non-Tender, Pelvis Stable Back Exam: Normal Inspection, Full Range of Motion Extremities: Normal Capillary Refill, Joint Swelling (Rt knee), Leg Pain (Rt knee with patella displaced superiorly, acutely tender.), Limited Range of Motion (Rt knee). No: Arm Pain, Increased Warmth, Mottled, Pallor, Redness Neurological: Alert, Oriented, CN II-XII Intact, Normal Cognition, No Motor/ Sensory Deficits Psychiatric: Normal Affect, Normal Mood Skin Exam: Warm, Dry, Intact, Normal Color, No Rash Course - Vital Signs Last Recorded V/S: Last Vital Signs Temp 98.1 F 08/27/19 10:06 Pulse 83 08/27/19 10:06 Resp 18 08/27/19 10:06 BP 136/88 08/27/19 10:06 Pulse Ox 97 08/27/19 10:06 - Orders/Labs/Meds Orders: Active Orders 24 hr Category Date Time Status Ankle 2V Rt [CR] Stat Exams 08/27/19 10:14 Taken Knee 3V Rt [CR] Stat Exams 08/27/19 10:13 Taken Meds: Medications Discontinued Medications Generic Name Dose Route Start Last Admin Trade Name Freq PRN Reason Stop Dose Admin Fentanyl 50 mcg 08/27/19 10:24 08/27/19 10:30 Sublimaze IVPUSH 08/27/19 10:25 50 mcg ONETIME ONE Administration - Radiology Interpretation Free Text/Narrative:: [facility] Final Radiology Report Call: [phone] assistance Online chat: [email or web address] Name: BETHANY BLAIR Age: 38Years F Date: 08/27/2019 SSN: -- : 1980 Study: CR KNEE 3V RT Requesting Physician: EDISON MARKS Images: 3 Addl Studies: Provided Clinical History: Fell down stairs, right knee pain Contrast: Contrast Medium: Contrast Amount: Contrast Method: CONFIDENTIALITY STATEMENT This report is intended only for use by the referring physician, and only in accordance with law. If you received this in error, call [phone]. Page 1 of 1 PROCEDURE INFORMATION: Exam: XR Right Knee Exam date and time: 08/27/2019 10:38 AM Age: 38 years old Clinical indication: Injury or trauma; Fall; Initial encounter; Patella or knee ; Right; Severity of dislocation not specified; Injury date: Today; Additional info: Fell down stairs , right knee pain TECHNIQUE: Imaging protocol: XR Right knee. Views: 3 views. COMPARISON: No relevant prior exams. FINDINGS: Bones/joints: There is marked patella tegan. This probably represents disruption of the patellar tendon. No fractures or dislocations. Soft tissues: See "Bones/joints" finding. Otherwise, unremarkable. IMPRESSION: Probable disruption of the patellar tendon. CT or MRI would be helpful for confirmation. Thank you for allowing us to participate in the care of your patient. Dictated and Authenticated by: Jose Paredes MD 08/27/2019 11:09 AM Central Time ([place] & [place]) [facility] [place] [facility] Final Radiology Report Call: [phone] assistance Online chat: [email or web address] Name: BETHANY BLAIR Age: 38Years F Date: 08/27/2019 SSN: -- : 1980 Study: CR ANKLE 2V RT Requesting Physician: EDISON MARKS Images: 2 Addl Studies: Provided Clinical History: Fell down stairs, Rt ankle pain Contrast: Contrast Medium: Contrast Amount: Contrast Method: CONFIDENTIALITY STATEMENT This report is intended only for use by the referring physician, and only in accordance with law. If you received this in error, call [phone]. Page 1 of 1 PROCEDURE INFORMATION: Exam: XR Right Ankle Exam date and time: 08/27/2019 10:44 AM Age: 38 years old Clinical indication: Injury or trauma; Fall; Initial encounter; Abrasion; Ankle ; Right; Injury date: Today; Additional info: Fell down stairs, RT ankle pain TECHNIQUE: Imaging protocol: XR Right ankle. Views: 1 or 2 views. COMPARISON: No relevant prior exams. FINDINGS: Bones/joints: Normal. Soft tissues: Mild soft tissue swelling laterally. IMPRESSION: No fractures or dislocations. Thank you for allowing us to participate in the care of your patient. Dictated and Authenticated by: Jose Paredes MD 08/27/2019 11:10 AM Central Time ([place] & [place]) - Re-Assessments/Exams Free Text/Narrative Re-Assessment/Exam: 08/27/19 10:55 I consulted orthopedic surgery via [employer]. _ advises Departure - Departure Time of Disposition: 11:07 Disposition: DC/Tfer to Acute Hospital 02 Condition: Good Clinical Impression: Rupture of right patellar tendon Qualifiers: Encounter type: initial encounter Qualified Code(s): S86.811A - Strain of other muscle(s) and tendon(s) at lower leg level, right leg, initial encounter Right ankle sprain Qualifiers: Encounter type: initial encounter Involved ligament of ankle: unspecified ligament Qualified Code(s): S93.401A - Sprain of unspecified ligament of right ankle, initial encounter Fall as cause of accidental injury at home as place of occurrence Qualifiers: Encounter type: initial encounter Qualified Code(s): W19.XXXA - Unspecified fall, initial encounter; Y92.009 - Unspecified place in unspecified non- institutional (private) residence as the place of occurrence of the external cause - Discharge Information *PRESCRIPTION DRUG MONITORING PROGRAM REVIEWED*: Not Applicable *COPY OF PRESCRIPTION DRUG MONITORING REPORT IN PATIENT RACHAEL: Not Applicable Forms: ED Department Discharge, Interfacility Transfer [place] Sepsis Event Note (ED) - Evaluation Sepsis Screening Result: No Definite Risk - Focused Exam Vital Signs: Vital Signs Temp Pulse Resp BP Pulse Ox 08/27/19 10:06 98.1 F 83 18 136/88 97 - My Orders Last 24 Hours: My Active Orders 08/27/19 10:13 Knee 3V Rt [CR] Stat 08/27/19 10:14 Ankle 2V Rt [CR] Stat - Assessment/Plan Last 24 Hours: My Active Orders 08/27/19 10:13 Knee 3V Rt [CR] Stat 08/27/19 10:14 Ankle 2V Rt [CR] Stat
[2019-08-27] MEDS ORDERED: fentaNYL 100 MCG/2 ML SDV IVPUSH ONE ×2 (10:24→11:12)
[2019-08-27] MEDS ORDERED: Ondansetron 4 MG/2 ML SDV IV ONE (11:12)
== END 2019-08-27 11:39 ==
LOC: DL.ED 10:05
DX: S86.811A Strain of other muscle(s) and tendon(s) at lower leg level, right leg, initial encounter (principal); S93.401A Sprain of unspecified ligament of right ankle, initial encounter; E66.9 Obesity, unspecified; F41.9 Anxiety disorder, unspecified; K21.9 Gastro-esophageal reflux disease without esophagitis; Z91.040 Latex allergy status; Z88.8 Allergy status to other drugs, medicaments and biological substances; Z79.899 Other long term (current) drug therapy; Z68.31 Body mass index [BMI] 31.0-31.9, adult; W10.9XXA Fall (on) (from) unspecified stairs and steps, initial encounter; Y92.009 Unspecified place in unspecified non-institutional (private) residence as the place of occurrence of the external cause
CPT/HCPCS: 73562; 73600; 96374; 96375; 96376; 99285; J2405; J3010

== ENCOUNTER 2021-08-01 13:42 | Emergency (ER) | payer OTHER ==
[2021-08-01 14:06] VITALS: BP 151/119; PULSE 84
[2021-08-01] MEDS ORDERED: Ketorolac 30 MG/ML SDV IVPUSH ONE (14:36)
[2021-08-01] MEDS ORDERED: Sodium Chloride 0.9% 1,000 ML IV ONE (14:36)
[2021-08-01] MEDS ORDERED: Metoclopramide 10 MG/2 ML SDV IVPUSH ONE (14:36)
[2021-08-01 15:23] LABS: ANION GAP 14.8 mEq/L (7-13); CHLORIDE,CL 106 mmol/L (98-107); SODIUM,NA 142 mmol/L (136-145)
== END 2021-08-01 16:40 | disposition home or self-care (01) ==
LOC: DL.ED 13:42
DX: G43.909 Migraine, unspecified, not intractable, without status migrainosus (principal); E78.00 Pure hypercholesterolemia, unspecified; K21.9 Gastro-esophageal reflux disease without esophagitis; I10 Essential (primary) hypertension; E11.9 Type 2 diabetes mellitus without complications; E66.9 Obesity, unspecified; Z68.32 Body mass index [BMI] 32.0-32.9, adult; Z90.49 Acquired absence of other specified parts of digestive tract; Z79.899 Other long term (current) drug therapy; Z79.84 Long term (current) use of oral hypoglycemic drugs; Z91.040 Latex allergy status; Z88.8 Allergy status to other drugs, medicaments and biological substances
CPT/HCPCS: 36415; 80053; 85025; 96374; 96375; 99283-25; J1885; J2765; J7030

== ENCOUNTER 2024-05-08 10:41 | Emergency (ER) | payer OTHER ==
[2024-05-08] MEDS ORDERED: Sodium Chloride 0.9% 10 ML Syringe FLUSH PRN (10:51)
[2024-05-08] MEDS: HYDROmorphone 0.5 MG/0.5 ML Syringe IVPUSH ONE (11:06)
[2024-05-08] MEDS: Ketorolac 30 MG/ML SDV IVPUSH ONE (11:06)
[2024-05-08 11:11] LABS: BASOPHILS PERCENT AUTO 0.3 % (0.0-1.0); HEMATOCRIT 42.5 % (37.0-47.0); HEMOGLOBIN 14.3 g/dL (12.0-16.0); MEAN CORPUSCULAR HEMOGLOBIN 28.5 pg (27.0-34.0); MEAN CORPUSCULAR HGB CONC 33.6 g/dL (33.0-35.0); MEAN CORPUSCULAR VOLUME 84.7 fL (80-100); NEUTROPHILS PERCENT AUTO 68.7 % (42.2-75.2); PLATELET COUNT,PLT 283 10^3/uL (150-450); RED BLOOD CELL COUNT 5.02 10^6/uL (4.2-5.4); WHITE BLOOD CELL COUNT,WBC 7.5 10^3/uL (5.0-10.0)
[2024-05-08] MEDS: Ondansetron 4 MG/2 ML SDV IVPUSH ONE (11:26)
[2024-05-08 11:30] LABS: A/G RATIO 1.1; ALANINE AMINOTRANSFERASE,ALT 43 U/L (14-59); ALKALINE PHOSPHATASE 76 U/L (46-116); ANION GAP 12.6 mEq/L (7-13); ASPARTATE AMNIOTRANSFERASE,AST 16 U/L (15-37); BILIRUBIN TOTAL 0.6 mg/dL (0.2-1.0); BLOOD UREA NITROGEN,BUN 22 mg/dL (7-18); BUN/CREATININE RATIO 31.9 (No establ ref range); C-REACTIVE PROTEIN < 0.50 ng/dL (<=0.50); CALCIUM 8.9 mg/dL (8.5-10.1); CARBON DIOXIDE,CO2 24 mmol/L (21-32); CHLORIDE,CL 104 mmol/L (98-107); CREATININE 0.69 mg/dL (0.55-1.02); ESTIMATED GFR 110 mL/min (>=60); GLUCOSE RANDOM 96 mg/dL (70-99); MAGNESIUM 1.9 mg/dL (1.8-2.4); POTASSIUM,K 3.6 mmol/L (3.5-5.1); PROTEIN TOTAL,TP 7.8 g/dL (6.4-8.2); SODIUM,NA 137 mmol/L (136-145)
[2024-05-08 11:34] LABS: HCG QUALITATIVE,SERUM NEGATIVE (NEGATIVE)
[2024-05-08 12:25] LABS: APPEARANCE,URINE SLIGHTLY CLOUDY (CLEAR); BILIRUBIN,URINE NEGATIVE (NEGATIVE); COLOR,URINE DARK YELLOW (YELLOW); GLUCOSE,URINE NEGATIVE (NEGATIVE); KETONES,URINE TRACE (NEGATIVE); LEUKOCYTE ESTERASE,URINE NEGATIVE (NEGATIVE); NITRITE,URINE NEGATIVE (NEGATIVE); OCCULT BLOOD,URINE LARGE (NEGATIVE); PH,URINE 5.5 (5.0-9.0); PROTEIN,URINE 100 (NEGATIVE); UROBILINOGEN,URINE 0.2 mg/dL (0.2-1.0)
[2024-05-08 12:42] LABS: BACTERIA,URINE MODERATE /HPF (0-FEW/HPF); MUCUS,URINE MODERATE /LPF (NOT SEEN); RBC,URINE SEMI-PACKED /HPF (0-5); WBC,URINE 0-5 /HPF (0-5/HPF)
[2024-05-08 12:43] LABS: EPITHELIAL CELLS,URINE MODERATE /HPF (NOT SEEN)
[2024-05-08 12:52] VITALS: BP 158/100; PULSE 86
== END 2024-05-08 12:44 | disposition home or self-care (01) ==
LOC: DL.ED 10:41
DX: N20.0 Calculus of kidney (principal); I10 Essential (primary) hypertension; E78.00 Pure hypercholesterolemia, unspecified; E11.9 Type 2 diabetes mellitus without complications; Z91.040 Latex allergy status; Z79.899 Other long term (current) drug therapy; Z79.84 Long term (current) use of oral hypoglycemic drugs
CPT/HCPCS: 36415; 74176; 80053; 81001; 83605; 83735; 84703; 85025; 86140; 96374; 96375; 99284; J1885; J2405

== ENCOUNTER 2025-01-08 18:39 | Emergency (ER) | payer OTHER ==
[2025-01-08] MEDS ORDERED: Sodium Chloride 0.9% 10 ML Syringe FLUSH PRN (18:56)
[2025-01-08] MEDS: Ondansetron 4 MG/2 ML SDV IVPUSH ONE (19:09)
[2025-01-08] MEDS: diphenhydrAMINE 50 MG/ML SDV IVPUSH ONE (19:10)
[2025-01-08] MEDS: Ketorolac 30 MG/ML SDV IVPUSH ONE (19:10)
[2025-01-08 20:00] VITALS: BP 173/110; PULSE 68
== END 2025-01-08 19:56 | disposition home or self-care (01) ==
LOC: DL.ED 18:39
DX: G43.901 Migraine, unspecified, not intractable, with status migrainosus (principal); I10 Essential (primary) hypertension; K21.9 Gastro-esophageal reflux disease without esophagitis; E78.00 Pure hypercholesterolemia, unspecified; E11.9 Type 2 diabetes mellitus without complications; E66.9 Obesity, unspecified; Z79.899 Other long term (current) drug therapy; Z79.84 Long term (current) use of oral hypoglycemic drugs; Z88.8 Allergy status to other drugs, medicaments and biological substances; Z91.040 Latex allergy status; Z68.32 Body mass index [BMI] 32.0-32.9, adult
CPT/HCPCS: 96361; 96374; 96375; 99283; J1200; J1885; J2405; J7030